=== PATIENT | female | born 1990 | race Caucasian/White ===

== ENCOUNTER 2020-10-05 17:53 | Emergency (ER) | payer OTHER ==
[~2020-10-05] VITALS: Ht 177.8 cm; Wt 102.1 kg
[2020-10-05] MEDS ORDERED: HYDROCODON-ACE1 EAC7 PO (18:53)
[2020-10-05] MEDS ORDERED: FLEXERIL PO (18:53)
[2020-10-05 19:14] VITALS: BP 120/72
== END 2020-10-05 19:15 | disposition home or self-care (01) ==
LOC: M.ERS 17:53
DX: S90.31XA Contusion of right foot, initial encounter (principal); Z98.51 Tubal ligation status; Y08.89XA Assault by other specified means, initial encounter; Y93.89 Activity, other specified; Y92.89 Other specified places as the place of occurrence of the external cause; Y99.8 Other external cause status